=== PATIENT | female | born 1945 | race Hispanic/Latino ===

== ENCOUNTER 2018-04-21 15:01 | Emergency (ER) | payer MEDICARE, BC ==
[2018-04-21 15:23] VITALS: TEMP 98.2; BMI 29.2
[2018-04-21] MEDS ORDERED: Oxycodone/Acetaminophen 5/325 mg Tab PO STA (15:26)
--- NOTE | 2018-04-21 15:31 | ED PDOC ---
Arrival/HPI - General Chief Complaint: Upper Extremity Problem/Injury Time Seen by Provider: 04/21/18 15:09 Historian: Patient - History of Present Illness Narrative History of Present Illness (Text): 04/21/18 15:28 72 year old female, pmh including brain tumor/htn, allergic to penicillin/ fluoroquinolones/macrolides, not allergic to morphine but she has nausea/ vomiting, complaining of rt. shoulder pain s/p accidental fall about 2 hours ago while walking. Pt. stated that she tripped, landed on the rt. shoulder joint with extension, no head or neck injury, no back pain, no painful neck or back, no numbness or tingling, no rash, no abdominal pain, no hematuria, able to recall the whole event, no other medical or psychological complaints. Past Medical History - Provider Review Nursing Documentation Reviewed: Yes - Reproductive Menopause: No - Cardiac Hx Cardiac Disorders: Yes Hx Hypertension: Yes - Pulmonary Hx Respiratory Disorders: No - Neurological Other/Comment: brain tumor removed 2016 - HEENT Hx HEENT Disorder: Yes Other/Comment: ideopathetic orbital inflammation - Renal Hx Renal Disorder: No - Endocrine/Metabolic Hx Endocrine Disorders: No - Hematological/Oncological Hx Blood Disorders: No - Integumentary Hx Dermatological Disorder: No - Musculoskeletal/Rheumatological Hx Musculoskeletal Disorders: No - Gastrointestinal Hx Gastrointestinal Disorders: Yes Hx Gastroesophageal Reflux: Yes - Genitourinary/Gynecological Hx Genitourinary Disorders: No - Psychiatric Hx Psychophysiologic Disorder: Yes Hx Anxiety: Yes Hx Depression: Yes Hx Substance Use: No - Surgical History Hx Hysterectomy: Yes Hx Tonsillectomy: Yes Other/Comment: brain tumor removed - Anesthesia Hx Anesthesia: Yes Hx Anesthesia Reactions: No Hx Malignant Hyperthermia: No Family/Social History - Physician Review Nursing Documentation Reviewed: Yes Family/Social History: Unknown Family HX Smoking Status: Heavy Smoker > 10 Cigarettes Daily Hx Alcohol Use: Yes Frequency of alcohol use: Socially Hx Substance Use: No Allergies/Home Meds Allergies/Adverse Reactions: Allergies ciprofloxacin [From Cipro] Allergy (Verified 04/21/18 15:24) RASH Penicillins Allergy (Verified 04/21/18 15:24) RASH clarithromycin [From Biaxin] Adverse Reaction (Verified 04/21/18 15:25) DIARRHEA morphine Adverse Reaction (Verified 04/21/18 15:24) VOMITING Home Medications: Home Meds Medication Instructions Recorded Confirmed Desloratadine [Clarinex] 5 mg PO DAILY 04/21/18 04/21/18 Diltiazem HCl [Cartia Xt] 120 mg PO BID 04/21/18 04/21/18 Escitalopram [Lexapro] 20 mg PO DAILY 04/21/18 04/21/18 Famotidine [Pepcid AC] 10 mg PO BID 04/21/18 04/21/18 Glucosamine Sulfate Dipot Chlr 1,000 mg PO DAILY 04/21/18 04/21/18 [Glucosamine] Ibuprofen [Advil] 200 mg PO DAILY PRN 04/21/18 04/21/18 Melatonin [Melatonin] 5 mg PO HS 04/21/18 04/21/18 Prednisone [Bernabe] 5 mg PO DAILY 04/21/18 04/21/18 Valsartan [Diovan] 320 mg PO DAILY 04/21/18 04/21/18 Review of Systems - Review of Systems Constitutional: absent: Fatigue, Fevers Eyes: absent: Vision Changes ENT: absent: Hearing Changes Respiratory: absent: SOB, Cough Cardiovascular: absent: Chest Pain Gastrointestinal: absent: Abdominal Pain, Nausea, Vomiting Musculoskeletal: Arthralgias. absent: Back Pain, Neck Pain, Joint Swelling, Myalgias Skin: absent: Rash, Pruritis, Skin Lesions Neurological: absent: Headache, Dizziness, Focal Weakness, Gait Changes, Speech Changes, Facial Droop, Disequilibrium, Seizure Psychiatric: absent: Anxiety, Depression, Suicidal Ideation Physical Exam Vital Signs Reviewed: Yes Vital Signs Temp Pulse Resp BP Pulse Ox 04/21/18 15:06 98.2 F 89 18 159/87 H 97 Temperature: Afebrile Blood Pressure: Hypertensive Pulse: Regular Respiratory Rate: Normal Appearance: Positive for: Well-Appearing, Non-Toxic, Comfortable Pain Distress: Moderate Mental Status: Positive for: Alert and Oriented X 3 - Systems Exam Head: Present: Atraumatic, Normocephalic, Other (no facial bony tenderness or swelling. ). No: Tenderness, Contusion, Swelling, Ecchymosis, Abrasion, Laceration Pupils: Present: PERRL Extroacular Muscles: Present: EOMI Conjunctiva: Present: Normal Ears: Present: NORMAL TM, Normal Canal. No: Erythema Mouth: Present: Moist Mucous Membranes Pharnyx: Present: Normal. No: ERYTHEMA, EXUDATE, TONSILS ENLARGED Nose (External): Present: Atraumatic. No: Abrasion, Contusion Nose (Internal): Present: Normal Inspection, No Active Bleeding. No: Rhinorrhea , Septal Hematoma, Epistaxis Neck: Present: Normal Range of Motion, Trachea Midline. No: Meningeal Signs, MIDLINE TENDERNESS, Paraspinal Tenderness, Lymphadenopathy Respiratory/Chest: Present: Clear to Auscultation, Good Air Exchange. No: Respiratory Distress, Accessory Muscle Use, Wheezes, Decreased Breath Sounds, Rales, Retracting, Rhonchi, Tachypneic, Tender to Palpation Cardiovascular: Present: Regular Rate and Rhythm, Normal S1, S2. No: Murmurs Abdomen: No: Tenderness, Distention, Peritoneal Signs, Rebound, Guarding Back: Present: Normal Inspection. No: CVA Tenderness, Midline Tenderness, Paraspinal Tenderness, Pain with Leg Raise, Decubitus Ulcer Upper Extremity: Present: Normal Inspection, NORMAL PULSES, Neurovascularly Intact, Capillary Refill < 2s, Other (RUE: +ttp on the rt. shoulder region with mild +ttp no the rt. proximal humeral region with mild swelling, no deformity, no elbow tenderness or swelling, no scaphoid or wrist/hand/finger tenderness, FROM except rt. shoulder movement, sensation intact, motor 5/5, +radial pulse, capillary refill< 2 seconds, neurovascular intact. ). No: Cyanosis, Edema, Deformity Lower Extremity: Present: Normal Inspection. No: Edema Neurological: Present: GCS=15, CN II-XII Intact, Speech Normal Skin: Present: Warm, Dry, Normal Color. No: Rashes Psychiatric: Present: Alert, Oriented x 3, Normal Insight, Normal Concentration Medical Decision Making ED Course and Treatment: 04/21/18 15:33 -Pt. refused CT head or neck as she stated that she has no head/neck injury with no headache either, I did offered but she declined, risks and benefits explained. -Rt. shoulder/rt. elbow xray -percocet and zofran, pt. refused IV/IM -Observe and reassess 04/21/18 17:10 -Pt. has rt. rib pain, unable to perform xray so I ordered CT chest w/o contrast r/o fracture -Rt. UE CT ordered for the patient to see if there is elbow fracture and better visibility of the rt. proximal humerus fracture, CT ordered. -Pt. agreed with [facility] CT head now 04/21/18 18:05 -RUE CT: Comminuted fracture of the proximal humerus. No evidence of elbow fracture -CT Chest: No evidence of rib fracture or pneumothorax -CT Head: Left frontal encephalomalacia. No acute intracranial findings -I applied the shoulder sling with neurovascular intact. -I checked the [facility] report, there is no signs of drug abuse. -Discharge home with percocet, sling, follow up with your own pmd and orthopedic /neurologist within 2 days, copy of the radiology discs given as well, return to the ER for any new or worsening signs or symptoms. - RAD Interpretation Radiology Orders: 04/21/18 15:26 SHOULDER RIGHT [RAD] Stat 04/21/18 16:21 CHEST W/O CONTRAST [CT] Stat EXT UPPER W/O CONTRAST RIGHT [CT] Stat HEAD W/O CONTRAST [CT] Stat CT Head: PROCEDURE: CT HEAD WITHOUT CONTRAST. HISTORY: fall COMPARISON: None available. TECHNIQUE: Axial computed tomography images were obtained through the head/brain without intravenous contrast. Radiation dose: Total exam DLP = 835 mGy-cm. This CT exam was performed using one or more of the following dose reduction techniques: Automated exposure control, adjustment of the mA and/or kV according to patient size, and/or use of iterative reconstruction technique. FINDINGS: HEMORRHAGE: No intracranial hemorrhage. BRAIN: No mass effect or edema. There is left frontal encephalomalacia. There is a previous craniotomy defect in this area VENTRICLES: Unremarkable. No hydrocephalus. CALVARIUM: Unremarkable. PARANASAL SINUSES: Unremarkable as visualized. No significant inflammatory changes. MASTOID AIR CELLS: Unremarkable as visualized. No inflammatory changes. OTHER FINDINGS: None. IMPRESSION: Left frontal encephalomalacia. No acute intracranial findings CT Chest: PROCEDURE: CT Chest without contrast HISTORY: rt. rib pain s/p fall, unable to perform xray COMPARISON: None. TECHNIQUE: Contiguous axial images were obtained through the chest without intravenous contrast enhancement. Sagittal and coronal reconstructions were performed. Radiation dose (DLP): 676 mGy-cm. This CT exam was performed using one or more of the following dose reduction techniques: Automated exposure control, adjustment of the mA and/or kV according to patient size, and/or use of iterative reconstruction technique. FINDINGS: LUNGS: Clear lungs. Visualized airway clear. MEDIASTINUM: Unremarkable thoracic aorta. No aneurysm. Normal sized heart. Main pulmonary artery unremarkable. No vascular congestion. No lymphadenopathy. PLEURA: No pleural fluid. No pneumothorax. BONES: No fracture. No destructive lesion. UPPER ABDOMEN: Small hiatal hernia OTHER FINDINGS: None. IMPRESSION: No evidence of rib fracture or pneumothorax CT RUE: PROCEDURE: CT of the right upper extremity without contrast HISTORY: rt. proximal humerus fracture, r/o rt. elbow fract COMPARISON: TECHNIQUE: Radiation dose: Total exam DLP = 739 mGy-cm. This CT exam was performed using one or more of the following dose reduction techniques: Automated exposure control, adjustment of the mA and/or kV according to patient size, and/or use of iterative reconstruction technique. FINDINGS: There is a comminuted fracture of the proximal humerus with a transverse humeral neck fracture and a fracture through the greater tuberosity. The elbow is intact with no fracture or dislocation. IMPRESSION: Comminuted fracture of the proximal humerus. No evidence of elbow fracture Rt. shoulder xray: PROCEDURE: Radiographs of the Right Shoulder HISTORY: rt. shoulder pain s/p fall COMPARISON: No prior. FINDINGS: BONES: There is a comminuted fractures of the proximal humerus involving the greater tuberosity and humeral neck. The articular surface is intact JOINTS: Normal. Glenohumeral and acromioclavicular joints preserved. No osteoarthritis. SOFT TISSUES: Normal. OTHER FINDINGS: None. IMPRESSION: There is a comminuted fractures of the proximal humerus involving the greater tuberosity and humeral neck. The articular surface is intact Mortgage Accounting Clerk: Radiologist - Medication Orders Current Medication Orders: Discontinued Medications Ondansetron HCl (Zofran Odt) 4 mg PO STAT STA Stop: 04/21/18 15:27 Last Admin: 04/21/18 16:21 Dose: 4 mg Oxycodone/Acetaminophen (Percocet 5/325 Mg Tab) 1 tab PO STAT STA Stop: 04/21/18 15:27 Last Admin: 04/21/18 16:21 Dose: 1 tab MAR Pain Assessment Document 04/21/18 16:21 SF (Rec: 04/21/18 16:21 SF [id number] Pain Reassessment Is this a pain reassessment? Yes Presence of Pain Presence of Pain Yes - PA / DIRECTOR OF FIELD SERVICE / Resident Statement MD/DO has reviewed & agrees with the documentation as recorded. Disposition/Present on Arrival - Present on Arrival Any Indicators Present on Arrival: No History of DVT/PE: No History of Uncontrolled Diabetes: No Urinary Catheter: No History of Decub. Ulcer: No History Surgical Site Infection Following: None - Disposition Have Diagnosis and Disposition been Completed?: Yes Diagnosis: Fall, Fx humeral neck, Encephalomalacia Disposition: HOME/ ROUTINE Disposition Time: 15:34 Patient Plan: Discharge Patient Problems: Current Active Problems Problem Status Onset Fall Acute Fx humeral neck Acute Condition: IMPROVED Discharge Instructions (ExitCare): Shoulder Fracture (DC) Additional Instructions: -Discharge home with percocet, sling, follow up with your own pmd and orthopedic /neurologist within 2 days, copy of the radiology discs given as well, return to the ER for any new or worsening signs or symptoms. Prescriptions: Ondansetron ODT [Zofran ODT] 4 mg PO TID PRN #12 odt PRN Reason: Other oxyCODONE/Acetaminophen [Percocet 5/325 mg Tab] 1 tab PO TID PRN #12 tab PRN Reason: Other Referrals: Emmanuel Mars, [Primary Care Provider] - Follow up with primary Sara Jackson MD [Staff Provider] - Follow up with primary Dom Ramírez MD [Staff Provider] - Follow up with primary Forms: WORK NOTE
--- NOTE | 2018-04-21 17:41 | RAD ---
PROCEDURE: Radiographs of the Right Shoulder HISTORY: rt. shoulder pain s/p fall COMPARISON: No prior. FINDINGS: BONES: There is a comminuted fractures of the proximal humerus involving the greater tuberosity and humeral neck. The articular surface is intact JOINTS: Normal. Glenohumeral and acromioclavicular joints preserved. No osteoarthritis. SOFT TISSUES: Normal. OTHER FINDINGS: None. IMPRESSION: There is a comminuted fractures of the proximal humerus involving the greater tuberosity and humeral neck. The articular surface is intact
--- NOTE | 2018-04-21 17:47 | CT ---
PROCEDURE: CT HEAD WITHOUT CONTRAST. HISTORY: fall COMPARISON: None available. TECHNIQUE: Axial computed tomography images were obtained through the head/brain without intravenous contrast. Radiation dose: Total exam DLP = 835 mGy-cm. This CT exam was performed using one or more of the following dose reduction techniques: Automated exposure control, adjustment of the mA and/or kV according to patient size, and/or use of iterative reconstruction technique. FINDINGS: HEMORRHAGE: No intracranial hemorrhage. BRAIN: No mass effect or edema. There is left frontal encephalomalacia. There is a previous craniotomy defect in this area VENTRICLES: Unremarkable. No hydrocephalus. CALVARIUM: Unremarkable. PARANASAL SINUSES: Unremarkable as visualized. No significant inflammatory changes. MASTOID AIR CELLS: Unremarkable as visualized. No inflammatory changes. OTHER FINDINGS: None. IMPRESSION: Left frontal encephalomalacia. No acute intracranial findings
--- NOTE | 2018-04-21 17:59 | CT ---
PROCEDURE: CT Chest without contrast HISTORY: rt. rib pain s/p fall, unable to perform xray COMPARISON: None. TECHNIQUE: Contiguous axial images were obtained through the chest without intravenous contrast enhancement. Sagittal and coronal reconstructions were performed. Radiation dose (DLP): 676 mGy-cm. This CT exam was performed using one or more of the following dose reduction techniques: Automated exposure control, adjustment of the mA and/or kV according to patient size, and/or use of iterative reconstruction technique. FINDINGS: LUNGS: Clear lungs. Visualized airway clear. MEDIASTINUM: Unremarkable thoracic aorta. No aneurysm. Normal sized heart. Main pulmonary artery unremarkable. No vascular congestion. No lymphadenopathy. PLEURA: No pleural fluid. No pneumothorax. BONES: No fracture. No destructive lesion. UPPER ABDOMEN: Small hiatal hernia OTHER FINDINGS: None. IMPRESSION: No evidence of rib fracture or pneumothorax
--- NOTE | 2018-04-21 18:04 | CT ---
PROCEDURE: CT of the right upper extremity without contrast HISTORY: rt. proximal humerus fracture, r/o rt. elbow fract COMPARISON: TECHNIQUE: Radiation dose: Total exam DLP = 739 mGy-cm. This CT exam was performed using one or more of the following dose reduction techniques: Automated exposure control, adjustment of the mA and/or kV according to patient size, and/or use of iterative reconstruction technique. FINDINGS: There is a comminuted fracture of the proximal humerus with a transverse humeral neck fracture and a fracture through the greater tuberosity. The elbow is intact with no fracture or dislocation. IMPRESSION: Comminuted fracture of the proximal humerus. No evidence of elbow fracture
[2018-04-21 18:35] VITALS: BP 154/82; PULSE 87; RESP 17; O2SAT 98
== END 2018-04-21 18:35 | disposition home or self-care (01) ==
LOC: ED 15:01
DX: S42.201A Unspecified fracture of upper end of right humerus, initial encounter for closed fracture (principal); W01.0XXA Fall on same level from slipping, tripping and stumbling without subsequent striking against object, initial encounter; G93.89 Other specified disorders of brain; I10 Essential (primary) hypertension; F17.210 Nicotine dependence, cigarettes, uncomplicated